=== PATIENT | female | born 1925 | race Caucasian/White ===

== ENCOUNTER 2017-01-28 23:21 | Emergency (ER) | payer MEDICARE ==
[~2017-01-28] VITALS: Ht 160 cm; Wt 61.2 kg
--- NOTE | 2017-01-28 23:26 | NUR ---
89 YO FEMALE BB RA FROM HOME,. PT IS ALERT X 3, C/O GLF. 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 PT ASSISTED TO ER BED BY EMS, SKIN WARM AND DRY, RR EVEN AND UNLABORED. NOTED SKIN TEAR LEFT UPPER ARM. AWAITING ORDERS FROM PROVIDER, WILL CONTINUE TO MONITOR
--- NOTE | 2017-01-28 23:46 | NUR ---
AMRIK NGUYEN MD AT BED SIDE FOR EVAL
[2017-01-28] MEDS ORDERED: TDAP [DIPH/PERTUSSIS/TET] 0.5 ML VIAL IM ONE (23:50)
[2017-01-29] MEDS ORDERED: TDAP [DIPH/PERTUSSIS/TET] 0.5 ML VIAL IM ONE
--- NOTE | 2017-01-29 00:01 | NUR ---
WOUND CARE AND DRESSED
--- NOTE | 2017-01-29 00:01 | NUR ---
Patient discharged to home in stable condition. Written and verbal after care instructions given. Patient verbalizes understanding of instruction. PT ambulatory with a steady gait VITAL SIGNS WITHIN NORMAL LIMITS.
--- NOTE | 2017-01-29 00:01 | NUR ---
MEDICATED PT ORDERED
[2017-01-29 00:02] VITALS: BP 131/88
[2017-01-29] MEDS ORDERED: ACETAMINOPHEN ES 500 MG TABLET ONE (00:26)
[2017-01-29] MEDS ORDERED: ACETAMINOPHEN 325 MG TABLET PO ONE (01:00)
== END 2017-01-29 00:03 | disposition home or self-care (01) ==
LOC: ER 23:22
DX: S50.312A Abrasion of left elbow, initial encounter (principal); S50.311A Abrasion of right elbow, initial encounter; S80.11XA Contusion of right lower leg, initial encounter; W18.39XA Other fall on same level, initial encounter; Y93.89 Activity, other specified; Y92.096 Garden or yard of other non-institutional residence as the place of occurrence of the external cause; Y99.8 Other external cause status
CPT/HCPCS: 73590-TC; 90715; A4606; A6402; Z7610